=== PATIENT | male | born 1990 | race Caucasian/White ===

== ENCOUNTER → 2016-06-01 | Day surgery (SDC) | payer MEDICAID, OTHER ==
[~2016-06-01] VITALS: Ht 182.9 cm; Wt 110.4 kg
[~2016-06-01] MED LIST: ACETAMINOPHEN/HYDROcodone 325 MG/5 MG TAB PO PRN; CIPROFLOXACIN/DEXT 400 MG/200 ML IV SCH; DO NOT ADM ANY ANTICOAGULANT DRUGS XX PRN; FAMOTIDINE 20 MG/2 ML VIAL ONE; INSULIN HUMAN REGULAR 1,000 UNITS/10 ML VIAL SQ PRN; LACTATED RINGER'S 1000 ML IV SCH; METOPROLOL TARTRATE 25 MG TAB PO PRN; MIDAZOLAM HCL 2 MG/2 ML VIAL ONE; ONDANSETRON HCL 4 MG/2 ML VIAL IV PUSH PRN; PEPC10TA PO; PROPOFOL 200 MG/20 ML AMP IV ONE; SODIUM CHLORID 0.9% 500 ML IV SCH; TRAM50TA PO; TYLE325T PO; VENTAER INH
[2016-06-01 08:57] VITALS: BP 110/74; PULSE 61; RESP 20; TEMP 97.9; O2SAT 97
[2016-06-01 10:47] VITALS: PULSE 63
[2016-06-01 11:37] VITALS: PULSE 67
[2016-06-01 12:26] VITALS: BP 111/70; PULSE 68; RESP 16; TEMP 97.5; O2SAT 97
--- NOTE | 2016-06-01 12:31 | MP ---
cc: LINDA STRAUSS DATE OF SURGERY: 06/01/2016 PREOPERATIVE DIAGNOSIS: Prostatitis with overactive bladder symptoms. POSTOPERATIVE DIAGNOSIS: Prostatitis with overactive bladder symptoms. OPERATION: Cystoscopy with prosthetic biopsy and transrectal ultrasound. SURGEON Linda Strauss MD. ANESTHESIA: Monitored anesthesia care FLUIDS: 500 CC crystalloid. SPECIMENS: Six core biopsies of prostate taken. COMPLICATIONS: None. CONDITION: He tolerated the procedure well. PROCEDURE: John Nash is a 26-year-old male who is presented to the office of chronic pelvic pain and findings of prostatitis. He has also had some symptoms of overactive bladder at times. He presents today to undergo prostate needle biopsy due to the fact that he has been treated multiple times with p.o. antibiotics and his prostatitis recurs. Plan is to undergo prostate needle biopsy and send some of the specimens off for culture as well as analysis. As well as undergo cystoscopy. The Risks and benefits were discussed preoperatively and he was willing to proceed. The patient received an enema as well as preprocedure antibiotics. The patient brought to operating room myself as John Nash. He is left on the stretcher in the supine position, received MAC anesthesia. Flexible cystoscopy after he was prepped and draped in usual sterile fashion. Flexible cystoscopy was performed. Chaidez cystoscopy did not reveal any abnormalities within the bladder and retroflex examination of bladder neck was unremarkable. He was then repositioned and put in the left lateral recumbent position and the ultrasound probe was inserted into the rectum. Volumetric measurements of the prostate were then taken and no hypoechoic lesions were identified. The prostate volume was noted to be 18.46 cubic cm. At this point six core biopsies were taken, three from the right side and three from left side. He tolerated the procedure well and was awoken and transferred to the Recovery Room in stable condition. He will follow up in one month in the office to go over pathology results. Linda MCLEOD/zev /10:52 AM /12:24 PM
== END | disposition home or self-care (01) ==
LOC: HSDC 08:16
PROVIDERS: ATTEND Urology
DX: N41.1 Chronic prostatitis (principal); N32.81 Overactive bladder
CPT/HCPCS: 00902; 00910; 52000; 55700; 87070; 87205; 88305; J0744; J2250; J7120; 87077